=== PATIENT | female | born 1970 | race Caucasian/White ===

== ENCOUNTER → 2023-09-12 13:41 | Outpatient (CLI) | payer OTHER, SELFPAY ==
--- NOTE | ~2023-09-12 | US_ITS ---
EXAMINATION: US pelvic complete w TV DATE: 09/12/2023 14:18 INDICATION: Uterine fibroids TECHNIQUE: Multiple transabdominal and endovaginal sonographic images of the pelvis were obtained. COMPARISON: None. FINDINGS: The uterus measures 9.8 x 7.8 x 5.1 cm. There is a 2.9 x 2.0 x 2.1 cm mass in the posterior uterine body with the appearance of an intramural fibroid. The endometrial complex measures 16 mm. T he right ovary is not visualized however no right adnexal abnormality is seen. The left ovary measure s 3.3 x 2.1 x 2.9 cm. There is normal vascular flow in the left ovary. There is no free fluid in the pelvis. IMPRESSION: 1. 2.9 cm uterine mass with the appearance of an intramural fibroid. Reviewed, dictated and finalized at location F. MER OPERATOR
== END ==
PROVIDERS: PCP Internal Medicine; Visit Provider Obstetrics & Gynecology
DX: D25.9 Leiomyoma of uterus, unspecified (principal)
CPT/HCPCS: 76830; 76856

== ENCOUNTER 2023-10-10 08:31 | Outpatient (CLI) | payer OTHER, SELFPAY ==
[2023-10-10 09:35] LABS: Basophils Absolute Auto 0.1 K/mm3 (0.0-0.1); Basophils Percent Auto 1.1 % (0.2-1.2); Eosinophils Absolute Auto 0.1 K/mm3 (0-0.3); Eosinophils Percent Auto 1.1 % (0-4.4); Hematocrit 40.9 % (37.0-47.0); Hemoglobin 13.4 g/dL (12.0-15.0); Immature Granulocyte Absolute 0.01 K/mm3 (0.00-0.031); Immature Granulocyte Percent A 0.2 % (0-0.5); Lymphocytes Absolute Auto 2.56 K/mm3 (0.9-3.2); Lymphocytes Percent Auto 39.9 % (18.3-44.2); Mean Corpuscular HGB Conc 32.8 g/dl (32-36); Mean Corpuscular Hemoglobin 29.2 pg (26-34); Mean Corpuscular Volume 89.1 fl (80-100); Mean Platelet Volume 10.1 fl (7.4-10.4); Monocytes Absolute Auto 0.4 K/mm3 (0.1-0.6); Monocytes Percent Auto 6.7 % (2.6-8.5); Neutrophils Absolute Auto 3.3 K/mm3 (1.3-6.7); Platelet Count Result 365 k/mm3 (150-375); Red Blood Count 4.59 M/mm3 (4.2-5.4); Red Cell Distribution Width 13.2 % (11.5-14.5); White Blood Count 6.4 K/mm3 (4.5-10.0)
== END 2023-10-10 08:32 | disposition home or self-care (01) ==
PROVIDERS: PCP Internal Medicine; Visit Provider Obstetrics & Gynecology
DX: D21.9 Benign neoplasm of connective and other soft tissue, unspecified (principal); Z01.818 Encounter for other preprocedural examination
CPT/HCPCS: 36415; 85025; 86850; 86900; 86901

== ENCOUNTER 2023-10-14 06:47 | Day surgery (SDC) | payer OTHER, SELFPAY ==
[2023-10-06 12:20] VITALS: BMI 33.8
--- NOTE | 2023-10-06 12:25 | PC.NURSE ---
Report to the Outpatient Waiting Room, entrance under the green pavilion located off [facility], at time 7:30 on date 10/14/23. Planned Procedure Time: 9:30. Time changes happen often and if your time is changed the preop area will call you the afternoon before. - You and your visitor will be asked to self-screen and do not enter if you have any COVID symptoms. - A mask is optional within the hospital at this time. Patients may have clear liquids (water, carbonated beverages, clear teas, apple juice) until 3 hours prior to surgery with a maximum of 20 ounces. - No food from midnight until time of surgery Take the following medications with a SIP of water the morning of surgery: GABAPENTIN DO NOT STOP ANY OF YOUR OTHER PRESCRIPTION MEDICATIONS PRIOR TO SURGERY ?EXCEPT THE FOLLOWING Medications to discontinue per physician: VITAMINS Date to take last dose: 10/10/23 Please no make-up, nail guinean, hairspray, perfume, deodorant, or body powder the day of surgery. No jewelry (including any body piercings) or valuables the day of surgery, leave them at home. Please take a shower or bath the night before, or the morning of, surgery with an antibacterial soap. Wear comfortable, loose fitting clothing. - Jewelry must be removed prior to entering the operating room. Rings and piercings that are not removed may be cut off. - The hospital will not accept responsibility for valuables. - Please leave all valuables, including medications, at home the day of surgery. If you are going home after surgery, a licensed chair car driver must drive you home. - NO public transportation without another adult if you receive anesthesia. - We recommend that an adult stay with you for 24 hours following discharge. - We also recommend that you do not drive, make important decision, drink alcoholic beverages, or take any drugs that were not prescribed by your health care provider for at least 24 hours after your discharge time. Follow any additional instructions given to you from your surgeon. If you or anyone in your household have experienced Covid symptoms in the past week, please notify your surgeon or the nurse liaison at the phone number below for possible testing. Telephone instructions given to PT - SHAHZAD MATHEW and asked if any additional questions and then verbalized understanding. Patient advised to call surgeon office or pre surgery nurse liaison [phone] if any additional questions.
--- NOTE | 2023-10-11 07:09 | P.HP_ITS ---
H&P: HPI History of Present Illness Date/Time: 10/11/23 07:09 Chief Complaint: Excessive bleeding/uterine fibroids/pelvic pain Narrative: 53-year-old female with symptomatic fibroids that includes excessive heavy bleeding pain and dysmenorrhea. Risks and benefits reviewed including but not exclusive of , aspiration, bleeding, transfusion, perforation injury to bowel, bladder, ureters, or other internal organs with need for open laparotomy. She received the ACO[employer] handout entitled hysterectomy as well as the de [place] handout. She had all questions answered. She asked to proceed [facility] Social History Social History Smoking status: Never smoker Alcohol intake: never Substance use: never Substance use type: does not use Living arrangements: with family Spiritual care concerns: No Meds Home Medications and Allergies Home Medications Medication Instructions Recorded Confirmed Type gabapentin 300 mg capsule 300 mg PO TID 10/06/23 10/06/23 History multivitamin 1 tablet PO DAILY 10/06/23 10/06/23 History Allergies Allergy/AdvReac Type Severity Reaction Status Date / Time morphine Allergy Severe CARDIAC Unverified 10/06/23 12:18 ARREST codeine Allergy Mild Other Unverified 10/06/23 12:18 Sulfa (Sulfonamide Allergy Mild Vomiting Unverified 10/06/23 12:18 Antibiotics) Exam Const: General: cooperative, healthy appearing and comfortable Orientation/consciousness: oriented to person, oriented to place and oriented to time Resp: Effort & Inspection: normal respiratory effort Cardio: Rate: regular rate Rhythm: regular rhythm Heart sounds: S1 normal heart sound present and S2 normal heart sound present GI: Inspection: normal to inspection : External Female Exam: normal external appearance Speculum Exam - Vagina: normal appearance of the vagina Speculum Exam - Cervix: normal appearance of the cervix Bimanual exam- vagina & uterus: enlarged and Uterine tenderness Bimanual Exam- Adnexa, other: normal adnexae Assessment and Plan Assessment and plan (1) Uterine fibroid: Code(s): D25.9 - Leiomyoma of uterus, unspecified Status: Acute (2) Excessive bleeding: Code(s): R58 - Hemorrhage, not elsewhere classified Status: Acute (3) Pelvic pain: Code(s): R10.2 - Pelvic and perineal pain Status: Acute Plan Robotic total vaginal hysterectomy and bilateral salpingectomy
--- NOTE | 2023-10-13 14:50 | P.PNAN_ITS ---
Anes - Initial Pre Proc Eval Procedure: Operation Date: 10/14/23 09:30 Proposed Procedures p Robotic Assisted Total Vaginal Hysterectomy with Bilateral Salpingectomy - Devin Michael MD Date/Time: 10/13/23 14:50 Surgeon: Devin Michael MD Pre Op Diagnosis: elrg, uterus, fibroids, pelvic pain , dysmenorrhea Patient Data Age: 53 Gender: F Height: 1.57 m Weight: 83.9 kg Allergies Allergy/AdvReac Type Severity Reaction Status Date / Time morphine Allergy Severe CARDIAC Unverified 10/06/23 12:18 ARREST codeine Allergy Mild Other Unverified 10/06/23 12:18 Sulfa (Sulfonamide Allergy Mild Vomiting Unverified 10/06/23 12:18 Antibiotics) Home Medications Medication Instructions Recorded Confirmed Type gabapentin 300 mg capsule 300 mg PO TID 10/06/23 10/06/23 History multivitamin 1 tablet PO DAILY 10/06/23 10/06/23 History Patient hx anesthesia problems: none Family hx anesthesia problems: none Results Review: All pre-operative results and documents have been reviewed as part of the pre- operative evaluation. [facility] Past Medical History Medical History (Updated 10/13/23 @ 14:51 by Drew Kaur DO) Fibroid Social History Social History Smoking status: Never smoker Alcohol intake: never Substance use: never Substance use type: does not use Living arrangements: with family Spiritual care concerns: No Anes - Eval Final PreProcedure Day of Procedure 10/13/23 14:50 Patient weight: obese Heart: regular rate and rhythm Lungs: clear to auscultation Airway: Mallampati scale class II Neurological: alert and oriented Last oral intake: >/= 8 hours ASA classification: II Emergent: no Anesthetic plan: proceed Anesthesia type and monitoring: general ETT and standard monitoring Results Review: All pre-operative results and documents have been reviewed as part of the pre- operative evaluation. Informed Consent: The patient's anesthetic plan and its attendant risks and benefits were discussed with the patient/family/POA. Questions were solicited and answers provided to the satisfaction of the patient/family/POA.
[2023-10-14] VITALS (12 sets, daily range): BP systolic 115–151; BP diastolic 65–89; PULSE 61–96; RESP 10–16; TEMP 36.6–36.9; O2SAT 93–100
--- NOTE | 2023-10-14 06:14 | WPDHPUPDATE1 ---
History and Physical Update Update Date/Time: 10/14/23 06:14 History and Physical has been reviewed, including an updated exam of the patient. There are NO changes in the patient's condition. Risks, benefits, and alternatives have been discussed and questions answered. Patient agrees to proceed with procedure.
[2023-10-14] MEDS: LACTATED RINGERS 1,000 ML 30 ML IV CONT ×2 (08:00→10:29)
[2023-10-14] MEDS: KETOROLAC 15 MG/ML VIAL (*BKC) IV PUSH (08:00)
[2023-10-14] MEDS: SCOPOLAMINE 1 MG PATCH 1 PATCH TRANSDERM (08:00)
[2023-10-14] MEDS: ACETAMINOPHEN 500 MG TABLET 1000 MG PO (08:00)
--- NOTE | 2023-10-14 08:59 | SUR.PREOP ---
ROOM WORKER BECCA #[id number] USED FOR PREOP COMMUNICATION W/ DOCUMENTING RN AND DR. NAM
[2023-10-14] MEDS: ceFAZolin 2 GM/D5W 50 ML 2 GM/50 ML BAG IVPB (09:26)
--- NOTE | 2023-10-14 10:15 | P.OP_ITS ---
Procedure Note - Detailed Date of Procedure 10/14/23 Pre-op Diagnosis elrg, uterus, fibroids, pelvic pain , dysmenorrhea Post-op Diagnosis Same Procedure Performed Robotic total vaginal hysterectomy and bilateral salpingectomy Surgeon Devin Michael MD Anesthesia General Indications is a 53 female with uterus bleeding and pain Findings enlarged uterus reason tubes. Description of Procedure the patient was prepped and draped in the normal sterile fashion placed in the dorsal lithotomy position. Under excellent general endotracheal anesthesia weighted speculum was placed in the posterior fornix of vagina. Anterior lip of the cervix grasped with a single-tooth tenaculum. Uterus sounded to 11cm. Serial dilatation with fragmented dilators performed followed by passage of the 10. TESS and the 3. 0.5 cold cup. Weighted speculum and single-tooth removed. The bladder was drained with a 16 Bulgarian catheter. The gloves were changed. Supraumbilical incision made the Veress needle passed in the abdomen. Abdomen filled with CO2 gas [id number]. The 8mm trocar advanced the abdomen. Downside visualized no injury seen. Patient placed in Trendelenburg and right left lateral quadrant incisions made. 8Mm trocars advanced under direct visualization assuring no injury. A right upper quadrant incision made and the 8mm trocar advanced under direct visualization assuring no injury. The robot w as docked. The left round ligament was grasped, burned, cut. Anteriorly a bladder flap was formed by sharply dissecting the peritoneum and reflecting the bladder caudally away from the cervix uterus the opposite round ligament which was clamped, burned, cut. Next the left fallopian tube was sharply dissected away from the ovarian complex and left attached to its uterine origin. In similar fashion the right fallopian tube was skeletonized away from the ovarian complex and left attached to the uterine origin. Utero-ovarian ligament on the left was then grasped burned and cut and brought to the level of previously cut round ligament conserving the left ovary. In similar fashion on the right conserving right ovary, the utero-ovarian was clamped, burned, cut and brought to level of prev iously cut round ligament. Cardinal broad ligaments on the left were serially skeletonized clamping burning cutting a brain these oz the level of the uterine vessels. These were large and tortuous. They were individually clamped, burned, cut. In similar fashion the cardinal broad ligaments were serially skeletonized clamping burning cutting and hugging the cervix uterus until the uterine vessels could be seen on the right. These were individually clamped, burned, cut. Blanching the uterus was noted and a colpotomy incision was made. Uterus cervix and tubes removed through the vagina. The vagina then closed with continuous running 0V lock from lateral edge to lateral edge back to midline. Irrigation undertaken until clear blood loss estimated 25cc. [place] term was placed over the raw surface area. The robot was undocked. The gas removed from the abdomen. The trocars removed the incisions closed with 4 Monocryl glue. Patient was awakened and went to recovery in satisfactory condition. All sponge, needle, instrument counts were correct. There were no immediate complications Estimated Blood Loss 25 Drains No Packing No Pathology Yes Complications No immediate complications Condition Stable Disposition PACU
--- NOTE | 2023-10-14 10:19 | P.DS_ITS ---
DS: Admitting Diagnosis Discharge Date 10/15/2023 Admitting Diagnosis pelvic pain/uterine bleeding/enlarged uterus DS: Discharge Diagnosis Discharge Diagnosis (1) Pelvic pain: Code(s): R10.2 - Pelvic and perineal pain Status: Acute (2) Excessive bleeding: Code(s): R58 - Hemorrhage, not elsewhere classified Status: Acute (3) Uterine fibroid: Code(s): D25.9 - Leiomyoma of uterus, unspecified Status: Acute DS: Summary Hospital Course Reason for hospitalization: patient was admitted for robotic total vaginal hysterectomy bilateral salpingectomy on 10/14/2023. Hospital Course: The patient underwent said procedure 10/14/2023. Hospital course was unremarkable. She remained afebrile. She was up, voiding without difficulty, eating regular diet, ambulating, and generally complaints. Time Spent with Patient Time attestation: Total time spent providing and/or coordinating discharge services: Exam Const: General: cooperative, healthy appearing and comfortable Orientation/consciousness: oriented to person, oriented to place and oriented to time HENMT: Head: normal to inspection Resp: Effort & Inspection: normal respiratory effort Cardio: Rate: regular rate Rhythm: regular rhythm Heart sounds: S1 nor mal heart sound present and S2 normal heart sound present GI: Inspection: normal to inspection and incision ( Wound clean dry and intact) DS: Data Data Completed and Pending Pending studies at discharge: Pending at discharge 10/14/23 09:59 Surgical [PTH] Routine Discharge Plan Discharge Patient Disposition: Home, Self-Care Patient Instructions: Laparoscopic Hysterectomy (DC), Pain Management After Surgery (DC) Stand Alone Forms: General Discharge Instructions Discharge Medications: New ketorolac 10 mg tablet 10 mg PO QID 5 Days Qty: 20 0RF No Action multivitamin Tablet 1 tablet PO DAILY gabapentin 300 mg Capsule 300 mg PO TID
[2023-10-14] MEDS: fentaNYL CITRATE INJ (*CRX) 100 MCG/2 ML VIAL 25 MCG IV PUSH ×5 (11:13→11:28)
[2023-10-14] MEDS: KETOROLAC 30 MG/ML VIAL (*BKC) IV PUSH ×2 (12:31→18:43)
[2023-10-14] MEDS: DEXTROSE 5%/LACTATED RINGERS 1,000 ML 125 ML IV CONT (12:31)
[2023-10-14] MEDS: SIMETHICONE 80 MG TAB.CHEW PO ×2 (12:32→18:44)
[2023-10-14] MEDS: traMADol HCL (*CRX) 50 MG TABLET PO ×2 (15:20→21:21)
[2023-10-14] MEDS: DOCUSATE SODIUM 100 MG CAPSULE PO (18:44)
[2023-10-15] MEDS: KETOROLAC 30 MG/ML VIAL (*BKC) IV PUSH (01:08)
[2023-10-15 04:30] VITALS: BP 121/67; PULSE 91; RESP 16; TEMP 36.7
[2023-10-15] MEDS: traMADol HCL (*CRX) 50 MG TABLET PO ×2 (04:40→10:59)
[2023-10-15 05:31] LABS: Basophils Percent Auto 0.2 % (0.2-1.2); Eosinophils Percent Auto 0.2 % (0-4.4); Hematocrit 37.7 % (37.0-47.0); Immature Granulocyte Absolute 0.06 K/mm3 (0.00-0.031); Immature Granulocyte Percent A 0.5 % (0-0.5); Lymphocytes Absolute Auto 2.64 K/mm3 (0.9-3.2); Lymphocytes Percent Auto 20.5 % (18.3-44.2); Mean Corpuscular HGB Conc 31.8 g/dl (32-36); Mean Corpuscular Hemoglobin 29.1 pg (26-34); Mean Corpuscular Volume 91.3 fl (80-100); Mean Platelet Volume 9.9 fl (7.4-10.4); Monocytes Absolute Auto 0.8 K/mm3 (0.1-0.6); Monocytes Percent Auto 6.1 % (2.6-8.5); Neutrophils Absolute Auto 9.3 K/mm3 (1.3-6.7); Neutrophils Percent Auto 72.5 % (45.5-73.1); Platelet Count Result 324 k/mm3 (150-375); Red Blood Count 4.13 M/mm3 (4.2-5.4); Red Cell Distribution Width 13.5 % (11.5-14.5); White Blood Count 12.9 K/mm3 (4.5-10.0)
--- NOTE | 2023-10-15 07:00 | PC.NURSE ---
PT introductions made and plan of care discussed per post op product assurance engineer surgery, pain management, daily care activities and pending discharge to home. PT and spouse both recipients of such instructions and no barriers to learning identified at this time. PT received such instructions per one to one discussion and demonstrations this shift. PT verbalized understanding of such care.
--- NOTE | 2023-10-15 07:44 | PM.GYNPNOP ---
METALS ANALYST - A/P Postoperative Procedures: Procedures Operation Date: 10/14/23 09:30 Actual Procedure Side Surgeon p Robotic Assisted Total Vaginal Hysterectomy with Bilateral Salpingectomy Bilateral Devin Michael MD Postoperative day: 1 Postoperative status: doing well Postoperative plan: routine post-op care, see orders, ambulate, advance diet, voiding trials and discharge Time Spent With Patient Time: Total time spent is greater than 50% in coordination of care (as documented) at patient's floor/unit and/or counseling patient: Time with patient: less than 15 minutes METALS ANALYST- PN:Subj Post-Op Subjective Date/time seen: 10/15/23 07:44 Subjective: patient reports feeling better, patient has no complaints, patient desires discharge, pain is well controlled and patient is tolerating oral intake Exam Const: General: cooperative, healthy appearing and comfortable Orientation/consciousness: oriented to person, oriented to place and oriented to time HENMT: Head: normal to inspection Resp: Effort & Inspection: normal respiratory effort Cardio: Rate: regular rate Rhythm: regular rhythm Heart sounds: S1 normal heart sound present and S2 normal heart sound present GI: Inspection: normal to inspection and incision ( wounds are clean dry and intact) METALS ANALYST - PN: Obj Data Vital Signs Vital Signs: Vital Signs - 24 hr 10/14/23 08:15 10/14/23 10:29 10/14/23 10:40 Temperature 97.9 F 98.1 F Pulse Rate 80 64 65 Respiratory Rate 16 10 L 12 Blood Pressure 151/89 H 120/82 132/86 Pulse Oximetry 100 100 100 Oxygen Delivery Room Air Simple Face Mask Simple Face Mask Oxygen Flow Rate 10 10 10/14/23 10:50 10/14/23 11:05 10/14/23 11:20 Temperature Pulse Rate 68 69 68 Respiratory Rate 12 12 12 Blood Pressure 132/85 137/81 137/79 Pulse Oximetry 100 100 100 Oxygen Delivery Simple Face Mask Simple Face Mask Simple Face Mask Oxygen Flow Rate 10 10 10 10/14/23 11:25 10/14/23 11:35 10/14/23 11:45 Temperature Pulse Rate 72 74 Respiratory Rate 14 16 Blood Pressure 116/74 115/78 Pulse Oximetry 95 93 97 Oxygen Delivery Room Air Room Air Room Air Oxygen Flow Rate 10/14/23 12:11 10/14/23 12:30 10/14/23 17:30 Temperature 97.8 F Pulse Rate 61 Respiratory Rate 16 Blood Pressure 130/72 Pulse Oximetry 97 Oxygen Delivery Room Air Room Air Oxygen Flow Rate 10/14/23 17:30 10/14/23 19:18 10/15/23 04:30 Temperature 98.2 F 98.4 F 98.0 F Pulse Rate 95 96 91 Respiratory Rate 16 16 16 Blood Pressure 121/85 125/65 121/67 Pulse Oximetry 97 Oxygen Delivery Oxygen Flow Rate Intake/Output Intake/Output: Intake & Output 10/12/23 10/13/23 10/14/23 10/15/23 23:59 23:59 23:59 23:59 Intake Total 1100 1000 Output Total 2420 700 Balance -1320 300 Meds/Results Medications: Active Medications Generic Name Dose Route Start Last Admin Trade Name Freq PRN Reason Stop Dose Admin Docusate Sodium 100 mg 10/14/23 17:00 10/14/23 18:44 Docusate Sodium 100 Mg Capsule PO 100 mg BID [facility] Administration Enoxaparin Sodium 40 mg 10/15/23 09:00 Enoxaparin 40 Mg/0.4 Ml Syringe SUB-Q DAILY [facility] Ibuprofen 600 mg 10/14/23 11:52 Ibuprofen 600 Mg Tablet PO Q6H PRN Cramping Ketorolac Tromethamine 10 mg 10/14/23 10:13 Ketorolac 10 Mg Tablet PO Q6H PRN Pain Rated 4-6 Ketorolac Tromethamine 30 mg 10/14/23 11:52 10/15/23 01:08 Ketorolac 30 Mg/Ml Vial (*Bkc) IV PUSH 10/19/23 11:51 30 mg Q6H PRN Administration Pain Rated 4-6 Naloxone HCl 0.1 mg 10/14/23 11:52 Naloxone Hcl 0.4 Mg/Ml Vial IV PUSH Q2M PRN Respiratory rate less than 10 Ondansetron HCl 4 mg 10/14/23 11:52 Ondansetron Inj 4 Mg/2 Ml Vial IV PUSH Q6H PRN Nausea And Vomiting Simethicone 80 mg 10/14/23 12:00 10/14/23 18:44 Simethicone 80 Mg Tab.Chew PO 80 mg TIDWM [facility] Administration Tramadol HCl 50 mg 10/14/23 14:54 10/15
--- NOTE | 2023-10-15 08:03 | P.PNAN_ITS ---
Anes - Prog Note Post-Op Date/Time: 10/15/23 08:03 Cardiovascular status: normal Respiratory status: normal Airway patency: baseline Mental status: baseline Post-Op hydration status: normal Vital Signs: Last Vital Signs Temp 36.7 C 10/15/23 04:30 Pulse 91 10/15/23 04:30 Resp 16 10/15/23 04:30 BP 121/67 10/15/23 04:30 Pulse Ox 97 10/14/23 17:30 O2 Del Method Room Air 10/14/23 17:30 O2 Flow Rate 10 10/14/23 11:20 Pain Score (VAS): 10/08 I/O: Intake & Output 10/14/23 10/15/23 10/15/23 23:59 07:59 15:59 Intake Total 500 1000 Output Total 2350 700 Balance -1850 300 Laboratory Tests 10/15/23 05:02 10/15/23 05:02 WBC 12.9 H RBC 4.13 L Hgb 12.0 Hct 37.7 MCV 91.3 MCH 29.1 MCHC 31.8 L RDW 13.5 Plt Count 324 MPV 9.9 Immature Gran % (Auto) 0.5 Neut % (Auto) 72.5 Lymph % (Auto) 20.5 [place] % (Auto) 6.1 Eos % (Auto) 0.2 Baso % (Auto) 0.2 Lymph # (Auto) 2.64 [place] # (Auto) 0.8 H Eos # (Auto) 0.0 Baso # (Auto) 0.0 Abs Immat Gran (auto) 0.06 H Absolute Neuts (auto) 9.3 H Absolute Nucleated RBC 0.0 Nucleated RBC % 0.0 Post-procedural complaints: none Patient Feedback: Patient satisfied with anesthetic care.
[2023-10-15 09:15] VITALS: BP 116/63; PULSE 83; RESP 18; TEMP 37.1; O2SAT 97
[2023-10-15] MEDS: SIMETHICONE 80 MG TAB.CHEW PO (09:38)
[2023-10-15] MEDS: DOCUSATE SODIUM 100 MG CAPSULE PO (09:38)
[2023-10-15] MEDS: KETOROLAC 10 MG TABLET PO (09:38)
[2023-10-15] MEDS: ENOXAPARIN 40 MG/0.4 ML SYRINGE SUB-Q (09:40)
--- NOTE | 2023-10-15 12:00 | PC.NURSE ---
PT received discharge instructions per protocol and verbalized understanding of such care.
--- NOTE | 2023-10-15 12:33 | PC.NURSE ---
PT discharged to home via wheelchair accompanied by spouse and taken to waiting car. follow up appts confirmed
== END 2023-10-15 12:33 | disposition home or self-care (01) ==
LOC: ANHSURGERY 10:20 → ANHOB2 11:55
PROVIDERS: PCP Internal Medicine; Visit Provider Obstetrics & Gynecology
PROC: (CPT 58552; principal; 2023-10-14 09:30)
DX: N80.03 Adenomyosis of the uterus (principal); D25.1 Intramural leiomyoma of uterus; N83.8 Other noninflammatory disorders of ovary, fallopian tube and broad ligament; N87.9 Dysplasia of cervix uteri, unspecified; E66.9 Obesity, unspecified; Z68.33 Body mass index [BMI] 33.0-33.9, adult
CPT/HCPCS: 58552; S2900; 36415; 85025; 86850; 86900; 86901; 88307; 99199; A9270; J0690; J1100; J1170; J1200; J1650; J1885; J2250; J2405; J2704; J3010; J7030; J7120; J7121